=== PATIENT | male | born 1985 | race Caucasian/White ===

== ENCOUNTER → 2021-04-08 13:22 | Outpatient (REF) | payer OTHER, SELFPAY ==
--- NOTE | 2021-04-08 13:26 | ECG_ITS ---
Hook-up date: 2021-04-08 13:37:00 Duration: 42:48:00 Test Indications: PALPITATIONS Medications: [id number] QRS complexes 74 Ventricular ectopics which represent <1 % of total QRS comp. 3 Supraventricular ectopics which represent <1 % of total QRS comp. * Paced QRS complexs which represent % of total QRS comp. VENTRICULAR ECTOPY 74 Isolated 3 Bigeminal Cycles 0 Couplets 0 Runs 0 Beats in Runs * Beats LONGEST at * BPM at :: -- * Beats FASTEST at * BPM at :: -- SUPRAVENTRICULAR ECTOPY 3 Isolated 0 Couplets 0 Runs 0 Beats in Runs * Beats LONGEST at * BPM at :: -- * Beats FASTEST at * BPM at :: -- HEART RATES 51 MIN at 06:41:57 2021-04-09 103 AVG 172 MAX at 22:06:59 2021-04-08 LONGEST RR 1.1840 secs at 06:41:52 2021-04-09 S-T LEVELS Channel 1 - 128 mm at 13:37:00 2021-04-08 - 128 mm at 13:37:00 2021-04-08 Channel 2 - 128 mm at 13:37:00 2021-04-08 - 128 mm at 13:37:00 2021-04-08 Channel 3 - 128 mm at 03:25:61 -- - 128 mm at 03:25:61 Underlying rhythm is sinus; Average ventricular rate 103/min; range 51-172/min; About 62% of the time, rate>100/min; Rare ventricular ectopy; Patient diary reported 'heart rate change','cough', but no relevant findings on holter. Referred By: Jewell Maravilla Overread By: KATHERINE MCCRARY
== END ==
LOC: HO.CARD 13:22
PROVIDERS: PCP Family Medicine; Visit Provider Nurse Practitioner Primary Care
DX: R00.2 Palpitations (principal)
CPT/HCPCS: 93226

== ENCOUNTER 2025-03-02 08:45 | Outpatient (REF) | payer SELFPAY ==
--- OUTSIDE RECORDS SUMMARY | 2025-03-02 09:24 | XMS_ITS | Encounter Summary ---
Author Organization [employer] Address [address] [facility] 7t [place] [address] Care Team Providers Care Hay Baler Name Role Phone Rebecca Mckinney MD Primary Care Provider [phone] Encounter Details Date Type Department Care Team (Latest Contact Info) Description 02/18/2021 Abstract [facility] CONVERSIONS Dental, Provider, DDS Social History Tobacco Use Types Packs/Day Years Used Date Smoking Tobacco: Never Assessed Sex and Gender Information Value Date Recorded Sex Assigned at Male 04/06/2022 10:34 AM EDT Legal Sex Male 10:34 AM EDT Gender Identity Male 04/06/2022 10:34 AM EDT Sexual Orientation Straight 04/06/2022 10 :34 AM EDT documented as of this encounter Plan of Treatment Not on file documented as of this encounter Visit Diagnoses Not on filedocumented in this encounter Care Teams Hay Baler Relationship Specialty Start Date End Date Rebecca Mckinney MD [address] [place] [id number] PCP - General Family Medicine 01/02/19 documented as of this encounter
--- OUTSIDE RECORDS SUMMARY | 2025-03-02 09:24 | XMS_ITS | Encounter Summary ---
Author Organization [employer] Address [address] [facility] 7[address] [place] [address] Care Team Providers Care Graphotype Operator Name Role Phone Rebecca Mckinney MD Primary Care Provider [phone] Reason for Visit * Reason Onset Date Comments Med Refill 03/29/2024 Encounter Details Date Type Department Care Team (Late st Contact Info) Description 03/29/2024 Refill [facility] [address] [place] [address] Rebecca Mckinney MD [address] [place] [address] Type 2 diabetes mellitus with hyperglycemia, unspecified whether superintendent terminal insulin use ([facility]) Social History Tobacco Use Types Packs/Day Years Used Date Smoking Tobacco: Never Smokeless Tobacco: Never Depression Answer Date Recorded Patient Health Questionnaire-9 Score 11 02/22/2024 Patient Health Questionnaire-9 Score 11 02/22/2024 Last PHQ-9: Questionnaire Data Not on file 0 02/22/2024 Housing Stability Answer Date Recorded What is your housing situation today? I have trisha terry 02/22/[address] you li ve. Do you have problems with any of the following? None of the above 02/22/2024 Food Insecurity Answer Date Recorded Within the past 12 months, y ou worried that your food would run out before you got money to buy more: Never True 02/22/2024 Within the past 12 months,th e food you bought just didn't last and you didn't have enough money to get more: Never True Transportation Answer Date Recorded In the past 12 months, has l ack of transportation kept you from medical appts, meetings, work or from getting things needed for daily living? No 02/22/2024 Utilities Answer Date Recorded In the past 12 months, has t he electric, gas, oil or water company threatened to shut off services in your home? No 02/22/2024 Depression Answer Date Recorded Patient Health Questionnaire-2 Score 3 02/22/2024 Internet Access Answer Date Recorded Internet Access Q1 Yes 02/22/2024 Internet Access Q2 Not on file 02/22/2024 Sex and Gender Information Value Date Recorded Sex Assigned at Male 04/06/2022 10:34 AM EDT Legal Sex Male 10:34 AM EDT Gender Identity Male 04/06/2022 10:34 AM EDT Sexual Orientation Straight 04/06/2022 10 :34 AM EDT documented as of this encounter Plan of Treatment Not on file documented as of this encounter Visit Diagnoses Diagnosis Type 2 diabetes mellitus with hyperglycemia, unspecified whether superintendent terminal insulin use ([facility]) documented in this encounter Additional Health Concerns Assessment Noted Time PHQ-9 Depression Total Score: 11 024 9:16 AM EDT documented as of this encounter Care Teams Graphotype Operator Relationship Specialty Start Date End Date Rebecca Mckinney MD [address] [place] [address] PCP - General Family Medicine 01/02/19 documented as of this encounter
--- OUTSIDE RECORDS SUMMARY | 2025-03-02 09:24 | XMS_ITS | Clinical Summary ---
Author Organization [employer] Address [address] [facility] 7[address] [place] [address] Care Team Providers Care Hydrodynamics Professor Name Role Phone Rebecca Mckinney MD Primary Care Provider Allergies No known active allergies Medications * This document contains information received from the source organization and may not represent a complete record from that organization. FREESTYLE LITE test strip TEST BLOOD SUGAR THREE TIMES DAILY IN THE MORNING AND NEEDED 250 strip 3 3 Active Continuous Glucose Mechanical Reliability Engineer (FreeStyle Santos 2 [place]) device Scan sensor every 8 hours 1 each 4 Active Continuous Glucose Sensor (FreeStyle Santos 2 Sensor) [facility] [place] 1 sensor every 14 days 2 each 11 4 Active Melatonin 5 MG capsule Take 1 or 2 capsules by mouth 2-3 hours prior to your desired bedtime 60 capsule 3 4 Active atorvastatin (Lipitor) 20 MG tabletIndicatio ns:Type 2 diabetes mellitus with hyperglycemia, unspecified 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 renewal 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 insulin use (CMS/HCC) TAKE 1 TABLET BY MOUTH EVERY DAY 90 tablet 3 5 Active lisinopril-hydr oCHLOROthiazide 20-25 MG tabletIndicatio ns:Type 2 diabetes mellitus with hyperglycemia, unspecified 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 renewal inspector insulin use (CMS/HCC) TAKE 1 TABLET BY MOUTH EVERY DAY 90 tablet 3 5 Active glipiZIDE (Glucotrol) 10 MG tabletIndicatio ns:Type 2 diabetes mellitus with hyperglycemia, unspecified whether penitentiary insulin use (CMS/HCC) TAKE 1 TABLET BY MOUTH TWICE DAILY BEFORE MEALS 180 tablet 3 5 Active metFORMIN XR (Glucophage-XR) 500 MG 24 hr tabletIndicatio ns:Type 2 diabetes mellitus with hyperglycemia, unspecified whether penitentiary insulin use ([facility]) TAKE 2 TABLETS BY MOUTH TWICE DAILY 120 tablet 3 5 Active Tirzepatide (Mounjaro) 2.5 MG/0.5ML solution auto-injector Inject 2.5 mg under the skin 1 (one) time per week. 2 mL 11 5 Active cyclobenzaprine (Flexeril) 10 MG tablet Take 0.5 tablets (5 mg) by mouth at bedtime. 90 tablet 1 5 Active glucose blood (FreeStyle Precision Bill Test) test stripIndication s:Type 2 diabetes mellitus with hyperglycemia, with long-term current use of insulin ([facility]) Use to test blood sugar 3 times daily and as needed 100 each 12 4 02/22/20 25 Dulaglutide 1.5 MG/0.5ML solution auto-injector Inject 0.5 mL (1.5 mg) under the skin 1 (one) time per week. 2 mL 11 4 02/09/20 25 Discontinue d(Alternate therapy) Active Problems Problem Noted Date Diagnosed Date Upper back pain 02/08/2025 Assessment & Plan (02/08/2025 1:05 PM EDT): - discussed about ergonomics / occupational injury prevention - Rx cyclobenzaprine Insomnia 05/17/2024 Assessment & Plan (05/17/2024 12:47 PM EST): - multifactorial - trial of melatonin - continue improving sleep hygiene - consider sleep study Shoulder pain 05/17/2024 Assessment & Plan (05/17/2024 12:46 PM EST): - equivocal impingement sign - evaluate with X-ray - continue judicious use of APAP and NSAID - refer to PT - consider MRI and referral to ortho if no improvement Marital conflict 05/17/2024 Depression, unspecified 03/03/2024 Assessment & Plan (05/20/2024 6:20 AM EST): - most likely MDD / anxiety - PHQ9 score 11 and GAD7 score 4 in Feb 2024 - PHQ9 score 7 today, 05/17/24 - discussed about pharmacological and non-pharmacological treatment today - patient requested behavioral health service and referred to integrated behavioral health service. He was seen by integrated behavioral health service clinician today since it is difficult to get hold of him. - he had a marital problem last year (his having an affair, and he was trying to forgive and repress his anger) Assessment & Plan (03/03/2024 5:55 AM EDT): - most likely MDD / anxiety - PHQ9 score 11 and GAD7 score 4 today - discussed about pharmacological and non-pharmacological treatment today - patient requests behavioral health service - he had a marital problem last year (his having an affair, and he was trying to forgive and repress his anger) - he did not want to talk much today because he is with his children. Type 2 diabetes mellitus 06/23/2023 Assessment & Plan (02/08/2025 1:10 PM EDT): Dx: 2016 A1C: 11.7% on 02/08/2025, worsened from 7.3% on 05/17/24 Continue Metformin 1g bid Continue Glipizide 10mg bid, with plan to taper down as we titrate up GLP1RA. Change dulaglutide 1.5 mg to tirzepatide 2.5 mg weekly Treatment Hx: Lantus insulin 25 units previously, discontinued with initiation of GLP1RA and he was able to improve to A1C 7.3%. Continue SMBG/medications and work lifestyle modifications. 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 Advised to reschedule appointment Last microalbumin-08/08/20 UACR 24; improved from 140 in 2020 Last lipid profile- 08/08/20 TC 179; TG 346; HDL 41; LDL 92 Last comprehensive foot exam -02/08/2025, patient has neuropathy. Decreased sensation left side worse than the right Hep B series started on 01/11/19 Assessment & Plan (05/17/2024 12:40 PM EST): Dx: 2015 A1C: 7.3% on 05/17/24, improved from 9.2% on 02/22/24 Continue Metformin 1g bid Continue Glipizide 10mg bid, with plan to taper down as we titrate up GLP1RA. Increase dulaglutide (Trulicity) to 1.5 mg weekly Treatment Hx: Lantus insulin 25 units previously, discontinued with initiation of GLP1RA Continue SMBG/medications and work lifestyle modifications. 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 Upcoming appt Last microalbumin-08/08/20 UACR 24; improved from 140 in 2019 Last lipid profile- 08/08/20 TC 179; TG 346; HDL 41; LDL 92 Last comprehensive foot exam - 02/22/24, patient has neuropathy. Hep B series started on 01/11/19 Assessment & Plan (03/03/2024 5:46 AM EDT): Dx: 2015 A1C: 9.2% on 02/22/24 Continue Lantus 20 units at bedtime (patient states he has been administering 25 units, will decrease when patient starts dulaglutide). Continue Metformin 1g bid Continue Glipizide 10mg bid, with plan to taper down as he starts dulaglutide. SMBG/medications and work lifestyle modifications. 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 Will request another eye exam. Last microalbumin-08/08/20 UACR 24; improved from 140 in 2020 Last lipid profile- 08/08/20 TC 179; TG 346; HDL 41; LDL 92 Last comprehensive foot exam - 02/22/24, patient has neuropathy. Hep B series started on 01/11/19 Dermatophytosis 09/16/2018 Hyperlipidemia 05/05/2018 06/23/2023 Assessment & Plan (02/08/2025 4:52 AM EDT): - current medication: atorvastatin 10 mg at bedtime - last lipid profile: overdue - continue working on lifestyle modificaitons Assessment & Plan (05/17/2024 12:41 PM EST): - current medication: atorvastatin 10 mg at bedtime - last lipid profile: overdue - continue working on lifestyle modificaitons Assessment & Plan (03/03/2024 5:48 AM EDT): - current medication: atorvastatin 10 mg at bedtime - last lipid profile: overdue - continue working on lifestyle modificaitons Essential hypertension 04/11/2018 Assessment & Plan (02/08/2025 4:51 AM EDT): -Goal BP < 130/80 per ACC/AHA guideline (Treatment threshold >=130/80) -BP almost at goal (elevated DBP) -Continue working on lifestyle modifications -Recommended self-monitoring BP. -Continue current medications: lisinopril - hctz 20-25 mg daily Assessment & Plan (05/17/2024 12:37 PM EST): -Goal BP < 140/90 per JNC-8 and < 130/80 per ACC/AHA guideline (Treatment threshold >=130/80) -BP almost at goal (elevated DBP) -Continue working on lifestyle modifications -Recommended self-monitoring BP. -Continue current medications: lisinopril - hctz 20-25 mg daily Assessment & Plan (02/22/2024 9:41 AM EDT): -Goal BP < 140/90 per JNC-8 and < 130/80 per ACC/AHA guideline (Treatment threshold >=130/80) -BP not at goal today -Continue working on lifestyle modifications -Recommended self-monitoring BP. -Continue current medications: lisinopril - hctz 20-25 mg daily Irritant contact dermatitis 04/11/2018 Tachycardia 04/11/2018 Assessment & Plan (02/08/2025 12:57 PM EDT): - not tachycardiac today, but HR is usually > 90 - check TSH Assessment & Plan (03/03/2024 5:42 AM EDT): - in the walk-in clinic in a setting of COVID - if patient is symptomatic after COVID resolves, will consider Holter monitor Resolved Problems Problem Noted Date Diagnosed Date Resolved Date Oropharyngeal dysphagia 05/17/202405/07 Odynophagia 05/17/2024 02/08/2025 Assessment & Plan (05/17/2024 12:56 PM EST): - no history of smoking or excessive alcohol intake - ? Postnasal drip - only on left side - will refer to ENT for evaluation Dyspnea on exertion 02/18/2024 03/03/20 COVID-19 02/18/2024 05/16/2024 Assessment & Plan (03/03/2024 5:48 AM EDT): - Dx on 02/18/24. - Continue precautionary measure per CDC guideline - Recommended to get a new COVID vaccine in 2-3 months Assessment & Plan (02/18/2024 3:48 PM EDT): -COVID-19 positive, symptoms mild to moderate -no evidence of respiratory distress -pt meets criteria for Paxlovid therapy -supportive care with fluids, rest and OTC analgesics -isolation discussed -work/school note given -seek medical attention for worsening symptoms Encounters Date Type Department Care Team Description 02/23/[address] [address] Rebecca Mckinney MD 02/08/2025 9:00 AM EDT Office Visit [address] [address] Rebecca Mckinney MD Type 2 diabetes mellitus with hyperglycemia, with long-term current use of insulin ([facility]) (Primary Dx); Essential hypertension; Mixed hyperlipidemia; Tachycardia; Dietary counseling; Exercise counseling; Class 1 obesity due to excess calories with serious comorbidity and body mass index (BMI) of 33.0 to 33.9 in adult; Depression, unspecified depression type; Upper back pain 02/08/2025 Telephone [facility] [address] [place] [phone] Rebecca Mckinney MD 02/08/2025 Travel 02/07/[address] [address] Rebecca Mckinney MD Insurance 01/03/[address] [address] Rebecca Mckinney MD OUTREACH 12/28/2024 Refill [facility] [address] [place] [address] Rebecca Mckinney MD Type 2 diabetes mellitus with hyperglycemia, unspecified 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 renewal inspector insulin use ([facility]) from Last 3 Months Immunizations Immunization Administration Dates Next Due Hep B, adult 01/11/2019 Influenza injectable quadrivalent preservative f ree 04/01/2021 Pneumococcal Polysaccharide PPSV23 01/11/2019 Tdap 01/11/2019 Family History Medical History Relation Name Comments Diabetes Father Diabetes Mother Hypertension Mother Relation Name Status Comments Father Mother Social History Tobacco Use Types Packs/Day Years Used Date Smoking Tobacco: Never Smokeless Tobacco: Never Tobacco Cessation:Counseling Given: Not Answered Depression Answer Date Recorded Patient Health Questionnaire-9 Score 7 05/17/2024 Patient Health Questionnaire-9 Score 7 05/17/2024 Last PHQ-9: Questionnaire Data Not on file 1 07/18/2023 Housing Stability Answer Date Recorded What is [...] Answer Date Recorded Patient Health Questionnaire-2 Score 4 05/17/2024 Internet Access Answer Date Recorded Internet Access Q1 Yes 02/22/2024 Internet Access Q2 Not on file 02/22/2024 Sex and Gender Information Value Date Recorded Sex Assigned at Male 04/06/2022 10:34 AM EDT Legal Sex Male 10:34 AM EDT Gender Identity Male 04/06/2022 10:34 AM EDT Sexual Orientation Straight 04/06/2022 10 :34 AM EDT Last Filed Vital Signs Vital Sign Reading Time Taken Comments Blood Pressure 124/80 02/08/2025 9:27 AM EDT Pulse 90 02/08/2025 9:27 AM EDT Temperature 36 C (96.8 F) 02/08/2025 9:27 AM EDT Respiratory Rate 17 02/08/2025 9:27 AM EDT Oxygen Saturation 99% 02/08/2025 9:27 AM EDT Inhaled Oxygen Concentration - - Weight 100 kg (221 lb 3.2 oz) 02/08/2025 9:27 AM EDT Height 172.9 cm (5' 8.06 ) 02/08/2025 9:27 AM ED T Body Mass Index 33.57 02/08/2025 9:27 AM EDT Plan of Treatment Health Maintenance Due Date Last Done Comments HIV Screening 1984 Family Planning (PISQ) 10/28/1999 HPV Vaccines (1 - Male 3-dose series) 10/28/1999 Hepatitis C Screening 2002 Hepatitis B Vaccines (2 of 3 - 19+ 3-dose series) 02/08/2019 01/11/2019 Pneumococcal Vaccine: Pediatrics (0 to 5 Years) and At-Risk Patients (6 to 49) Years (2 of 2 - PCV) 01/12/2020 01/11/2019 Diabetes: Urine Protein Screening 08/08/2021 08/08/2020, 03/06/2020 Lipid Panel 08/08/2021 08/08/2020 Eye Exam 10/31/2023 10/30/2022, 10/06, 10/30/2022, Additional history exists COVID-19 Vaccine ( season) 2025 05/15/2021, 09/20/2020, 08/23/2020 Influenza Vaccine (#1) 2025 04/01/2021 Diabetes: Hemoglobin A1C 05/10/2025 025, 05/17/2024, 02/22/2024, Additional history exists Alcohol/Substance Use Screening 05/17/2025 05/17/2024 Depression Screening 05/17/2025 05/17/2024, 05/17/20 24 Diabetes: Foot Exam 02/08/2026 02/08/2025, 02/08/2025, 02/08/2025, Additional history exists Disability Screening 02/08/2026 02/08/2025 SDOH Screening 02/08/2026 02/08/2025 Tobacco Screening 02/08/2026 02/08/2025 DTaP/Tdap/Td Vaccines (2 - Td or Tdap) 01/11/2029 01/11/2019 Zoster Vaccines (1 of 2) 2034 RSV Patients and Patients Aged 60 years or older (1 - 1-dose 75+ series) 10/28/2059 HIB Vaccines Aged Out No longer eligi ble based on patient's age to complete this topic Hepatitis A Vaccines Aged Out No long er eligible based on patient's age to complete this topic IPV Vaccines Aged Out No longer eligi ble based on patient's age to complete this topic Meningococcal B Vaccine Aged Out No l onger eligible based on patient's age to complete this topic Meningococcal Vaccine Aged Out No long polo eligible based on patient's age to complete this topic RSV under 20 months Aged Out No longe r eligible based on patient's age to complete this topic Rotavirus Vaccines Aged Out No longer eligible based on patient's age to complete this topic Procedures Procedure Name Priority Date/Time Associated Diagnosis Comments POCT GLYCOSYLATED HEMOGLOBIN (HGB A1C) Routine 02/08/2025 9:40 AM EDT Type 2 diabetes mellitus with hyperglycemia, with long-term current use of insulin ([facility]) POCT GLUCOSE Routine 02/08/2025 9:28 AM EDT Type 2 diabetes mellitus with hyperglycemia, with long-term current use of insulin ([facility]) ALBUMIN, RANDOM URINE W/CREATININE Routine 08/08/2020 10:45 AM EST LIPID PANEL, STANDARD Routine 08/08/2020 10:45 AM EST from Last 3 Months or Most Recently Relevant to Health Maintenance Results * (ABNORMAL) POCT glycosylated hemoglobin (Hgb A1c) (02/08/2025 9:40 AM EDT) [facility] Hemoglobin A1C 11.7(A) 4.0 - 5.7 % QC Media Lot # [id number] Lot# Expiration Date Blood Capillary blood specimen / Unknown 02/08/2025 9:40 AM EDT us Rebecca Mckinney MD POINT OF CARE TEST ENTER/EDIT OR DERABLES Final Result * (ABNORMAL) POCT glucose manually resulted (02/08/2025 9:28 AM EDT) [facility] Glucose Blood, POC 269(A) 60 - 200 mg/dL QC Media Lot # [id number] Lot# Expiration Date Blood Capillary blood specimen / Unknown 02/08/2025 9:28 AM EDT us Rebecca Mckinney MD POINT OF CARE TEST ENTER/EDIT OR DERABLES Final Result * ALBUMIN, RANDOM URINE W/CREATININE (08/08/2020 10:45 AM EST) [facility] Microalbumin Urine 2.4 See Note: mg/dL [facility] Comment: Reference Range: Reference Range Not established Microalb/Creat Ratio 24 <30 mcg/mg creat [facility] Comment: The ADA defines abnormalities in albumin excretion as follows: Category Result (mcg/mg creatinine) Normal <30 Microalbuminuria 30-299 Clinical albuminuria > OR = 300 The ADA recommends that at least two of three specimens collected within a 3-6 month period be abnormal before considering a patient to be within a diagnostic category. Creatinine, Urine 99 20 - 320 mg/dL [facility] 08/08/2020 10:4 5 AM EST us Rebecca Mckinney MD LAB URINE ORDERABLES Final Resul t [facility] [address] * (ABNORMAL) LIPID PANEL, STANDARD (08/08/2020 10:45 AM EST) [facility] Chol/HDLC Ratio 4.4 <5.0 (calc) [facility] Cholesterol, Total 179 <200 mg/dL [facility] HDL Cholesterol 41 > OR = 40 mg/dL [facility] LDL Cholesterol 92 mg/dL (calc) [facility] Comment: Reference range: <100 Desirable range <100 mg/dL for primary prevention; <70 mg/dL for patients with CHD or diabetic patients with > or = 2 CHD risk factors. LDL-C is now calculated using the Marcellus calculation, which is a validated novel method providing better accuracy than the Friedewald equation in the estimation of LDL-C. Gary SS et al. HÉCTOR. 2013;310(19): 9944-2516 (http://education.Konjekt/faq/KAO440) Non-HDL Cholesterol 138(H) <130 mg/dL (calc) [facility] Comment: For patients with diabetes plus 1 major ASCVD risk factor, treating to a non-HDL-C goal of <100 mg/dL (LDL-C of <70 mg/dL) is considered a therapeutic option. Triglycerides 346(H) <150 mg/dL [facility] Comment: If a non-fasting specimen was collected, consider repeat triglyceride testing on a fasting specimen if clinically indicated. Aguirre et al. J. of Clin. Lipidol. 2015;9:129-169. 08/08/2020 10:4 5 AM EST us Rebecca Mckinney MD LAB BLOOD ORDERABLES Final Resul t [facility] [address] from Last 3 Months or Most Recently Relevant to Health Maintenance Insurance [employer] PPO Care Teams Hydrodynamics Professor Relationship Specialty Start Date End Date Rebecca Mckinney MD [address] [place] [address] [place] [address] PCP - General Family Medicine 01/02/19
--- OUTSIDE RECORDS SUMMARY | 2025-03-02 09:24 | XMS_ITS | Encounter Summary ---
Author Organization [employer] Address 75 [facility] 7t [place] [address] Care Team Providers Care Dope Weigh Operator Name Role Phone Rebecca Mckinney MD Primary Care Provider [phone] Reason for Referral * Consultation (Routine) - Closed Specialty Diagnoses / Procedures Referred By Contac t Referred To Contact Pharmacy Diagnoses Type 2 diabetes mellitus with hyperglycemia, with long-term current use of insulin (CMS/HCC) Essential hypertension Rebecca Mckinney MD [address] [place] [address] Phone: tel: fax: Referral ID Status Reason Start Date Expiration Date V isits Requested Visits Authorized [id number] Closed Consult and Treat 04/05/2024 04/05/2025 6 6 Encounter Details Date Type Department Care Team (Late st Contact Info) Description 04/05/2024 Orders Only [facility] [address] [place] [address] Rebecca Mckinney MD [address] [place] [address] Type 2 diabetes mellitus with hyperglycemia, with long-term current use of insulin (CMS/HCC) (Primary Dx); Essential hypertension Social History Tobacco Use Types Packs/Day Years [...] as of this encounter Plan of Treatment Scheduled Referrals Name Type Priority Associated Diagnoses Orde r Schedule Referral to Pharmacy CD Outpatient Referral Routine Type 2 diabetes mellitus with hyperglycemia, with long-term current use of insulin ([facility]) Essential hypertension Ordered: 04/05/2024 documented as of this encounter Visit Diagnoses Diagnosis Type 2 diabetes mellitus with hyperglycemia, with long-term current use of insulin ([facility])- Primary Essential hypertension Unspecified essential hypertension documented in this encounter Additional Health Concerns Assessment Noted Time PHQ-9 Depression Total Score: 11 024 9:16 AM EDT documented as of this encounter Care Teams Dope Weigh Operator Relationship Specialty Start Date End Date Rebecca Mckinney MD [address] [place] [address] PCP - General Family Medicine 01/02/19 documented as of this encounter
--- OUTSIDE RECORDS SUMMARY | 2025-03-02 09:24 | XMS_ITS | Encounter Summary ---
Author Organization [employer] Address 75 [facility] 7t [place] [address] Care Team Providers Care Returns Supervisor Name Role Phone Rebecca Mckinney MD Primary Care Provider [phone] Reason for Visit * Reason Onset Date Comments Med Refill 03/07/2024 Encounter Details Date Type Department Care Team (Late st Contact Info) Description 03/07/2024 Refill [facility] [address] [place], [place] [phone] Rebecca Mckinney MD [address] [place] [address] Type 2 diabetes mellitus with hyperglycemia, unspecified 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 treater insulin use ([facility]) Social History Tobacco Use Types Packs/Day Years [...] diabetes mellitus with hyperglycemia, unspecified 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 treater insulin use ([facility]) documented in this encounter Additional Health Concerns Assessment Noted Time PHQ-9 Depression Total Score: 11 024 9:16 AM EDT documented as of this encounter Care Teams Returns Supervisor Relationship Specialty Start Date End Date Rebecca Mckinney MD [address] [place] [address] PCP - General Family Medicine 01/02/19 documented as of this encounter
--- OUTSIDE RECORDS SUMMARY | 2025-03-02 09:24 | XMS_ITS | Encounter Summary ---
Author Organization [employer] Address 75 [facility] 7t [place] [address] Care Team Providers Care Registered Nurse First Assistant Name Role Phone Rebecca Mckinney MD Primary Care Provider [phone] Encounter Details Date Type Department Care Team (Late st Contact Info) Description 12/11/2022 Orders Only [facility] & PEDS [address] [place] [address] Liss Bautista LPN Social History Tobacco Use Types Packs/Day Years Used Date Smoking Tobacco: Never Smokeless Tobacco: Never Sex and Gender Information Value Date Recorded Sex Assigned at Male 04/06/2022 10:34 AM EDT Legal Sex Male 10:34 AM EDT Gender Identity Male 04/06/2022 10:34 AM EDT Sexual Orientation Straight 04/06/2022 10 :34 AM EDT documented as of this encounter Plan of Treatment Not on file documented as of this encounter Visit Diagnoses Not on filedocumented in this encounter Care Teams Registered Nurse First Assistant Relationship Specialty Start Date End Date Rebecca Mckinney MD [address] [place] [address] PCP - General Family Medicine 01/02/19 documented as of this encounter
--- OUTSIDE RECORDS SUMMARY | 2025-03-02 09:24 | XMS_ITS | Encounter Summary ---
Author Organization [employer] Address 75 [facility] 7t [place] [address] Care Team Providers Care Mortuary Operations Manager Name Role Phone Rebecca Mckinnye MD Primary Care Provider [phone] Reason for Visit * Reason Onset Date Comments Med Refill 06/04/2024 Encounter Details Date Type Department Care Team (Late st Contact Info) Description 06/04/2024 Refill [facility] MEDICINE [address] [place] [address] Rebecca Mckinney MD [address] [place] [address] Social History Tobacco Use Types Packs/Day Years [...] Diagnoses Not on filedocumented in this encounter Additional Health Concerns Assessment Noted Time PHQ-9 Depression Total Score: 7 05/17/20 24 2:31 PM EST documented as of this encounter Care Teams Mortuary Operations Manager Relationship Specialty Start Date End Date Rebecca Mckinney MD [address] [place] [address] PCP - General Family Medicine 01/02/19 documented as of this encounter
[2025-03-02 12:20] LABS: Alanine Aminotransferase 26 U/L (0-40); Albumin Level 4.4 g/dL (3.5-5.0); Alkaline Phosphatase 79 U/L (39-117); Anion Gap 9 (12-20); Aspartate Amino Transferase 41 U/L (5-37); Blood Urea Nitrogen 21 mg/dL (9-16); Calcium 9.5 mg/dL (8.4-10.2); Carbon Dioxide 29 mmol/L (22-29); Chloride 107 mmol/L (96-108); Cholesterol 153 mg/dL (<200); Estimated Glomerular Filt Rate > 60; HDL Cholesterol 28 mg/dL (>40); Potassium 4.2 mmol/L (3.3-5.1); Sodium 141 mmol/L (135-145); Total Protein 6.9 g/dL (6.5-8.0); Triglycerides 449 mg/dL (<150)
[2025-03-02 12:34] LABS: Folate 9.0 ng/mL (> or = 4.0); Vitamin B12 507 pg/mL (200-900)
[2025-03-02 13:38] LABS: Reflex LDLD? Yes
== END 2025-03-02 08:46 | disposition home or self-care (01) ==
LOC: HO.HHCL 08:45
PROVIDERS: PCP Family Medicine; Visit Provider Family Medicine
DX: E11.65 Type 2 diabetes mellitus with hyperglycemia (principal); R00.0 Tachycardia, unspecified; Z79.4 Long term (current) use of insulin
CPT/HCPCS: 36415; 80053; 80061; 82607; 82746; 83721; 84443

== ENCOUNTER 2025-04-17 14:44 | Outpatient (REF) | payer OTHER, SELFPAY ==
--- OUTSIDE RECORDS SUMMARY | 2025-04-16 17:40 | XMS_ITS | Encounter Summary ---
Author Organization [employer] Address 75 [facility] 7t [place] [address] Care Team Providers Care Fixed Route Operator Name Role Phone Rebecca Mckinney MD Primary Care Provider [phone] Reason for Visit * Reason Comments Shoulder Pain Encounter Details Date Type Department Care Team ([facility] st Contact Info) Description 04/16/2025 5:40 PM EST Office Visit [facility] [address] [place] [address] Jo Murillo FNP [address] [place] [address] Chronic left shoulder pain (Primary Dx) Social History Tobacco Use Types Packs/Day Years [...] AM EDT documented as of this encounter Last Filed Vital Signs Vital Sign Reading Time Taken Comments Blood Pressure 131/88 04/16/2025 5:23 PM EST Pulse 102 04/16/2025 5:23 PM EST Temperature 36.4 C (97.6 F) 04/16/2025 5:23 PM EST Respiratory Rate 16 04/16/2025 5:23 PM EST Oxygen Saturation - - Inhaled Oxygen Concentration - - Weight 101 kg (222 lb) 04/16/2025 5:23 PM EST Height 172.9 cm (5' 8.06 ) 04/16/2025 5:23 PM ES T Body Mass Index 33.7 04/16/2025 5:23 PM EST documented in this encounter Plan of Treatment Scheduled Orders Name Type Priority Associated Diagnoses Orde r Schedule XR Shoulder 2+ Views Left Imaging Routine Chronic left shoulder pain Expected: 04/16/2025, Expires: 04/16/2026 documented as of this encounter Visit Diagnoses Diagnosis Chronic left shoulder pain- Primary Pain in joint, shoulder region documented in this encounter Additional Health Concerns Assessment Noted Time PHQ-9 Depression Total Score: 7 05/17/20 24 2:31 PM EST documented as of this encounter Care Teams Fixed Route Operator Relationship Specialty Start Date End Date Rebecca Mckinney MD [address] [place] [address] PCP - General Family Medicine 01/02/19 documented as of this encounter
--- OUTSIDE RECORDS SUMMARY | 2025-04-17 16:31 | XMS_ITS | Encounter Summary ---
Author Organization [employer] Address 75 [facility] 7t [place] [address] Care Team Providers Care Casualty Claims Supervisor Name Role Phone Rebecca Mckinney MD Primary Care Provider [phone] Encounter Details Date Type Department Care Team (Late st Contact Info) Description 12/11/2022 Orders Only [facility] & PEDS [address] [place] [address] Liss Bautista LPN Social History Tobacco Use [...] on filedocumented in this encounter Care Teams Casualty Claims Supervisor Relationship Specialty Start Date End Date Rebecca Mckinney MD [address] [place] [address] PCP - General Family Medicine 01/02/19 documented as of this encounter
--- OUTSIDE RECORDS SUMMARY | 2025-04-17 16:31 | XMS_ITS | Encounter Summary ---
Author Organization [employer] Address 75 [facility] 7t [place] [address] Care Team Providers Care Pbx Technician Name Role Phone Rebecca Mckinney MD Primary Care Provider [phone] Reason for Visit * Reason Onset Date Comments Med Refill 06/04/2024 Encounter Details Date Type Department Care Team (Late st Contact Info) Description 06/04/2024 Refill [facility] MEDICINE [address] [place] [address] Rebecca Mckinney MD [address] [place] [address] Social History Tobacco Use Types Packs/Day Years [...] documented as of this encounter Care Teams Pbx Technician Relationship Specialty Start Date End Date Rebecca Mckinney MD [address] [place] [address] PCP - General Family Medicine 01/02/19 documented as of this encounter
--- OUTSIDE RECORDS SUMMARY | 2025-04-17 16:31 | XMS_ITS | Encounter Summary ---
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 insulin use ([facility]) Social History Tobacco Use Types Packs/Day Years [...] 2 diabetes mellitus with hyperglycemia, unspecified whether skilled nursing insulin use (HCC) documented in this encounter Additional Health Concerns Assessment Noted Time PHQ-9 Depression Total Score: 11 024 9:16 AM EDT documented as of this encounter Care Teams Dividend Deposit Voucher Clerk Relationship Specialty Start Date End Date Rebecca Mckinney MD [address] [place] [address] PCP - General Family Medicine 01/02/19 documented as of this encounter
--- OUTSIDE RECORDS SUMMARY | 2025-04-17 16:31 | XMS_ITS | Clinical Summary ---
Author Organization [employer] Address 75 [facility] 7t [place] [address] Care Team Providers Care [employer] Web[employer] Consultant Name Role Phone Rebecca Mckinney MD Primary Care Provider [phone] Allergies No known active allergies Medications * This document contains information received from the source organization and may not represent a complete record from that organization. FREESTYLE LITE test strip TEST BLOOD SUGAR THREE TIMES DAILY IN THE MORNING AND NEEDED 250 strip 3 3 Active Continuous Glucose Wind Operations Manager (FreeStyle Santos 2 [place]) device Scan sensor every 8 hours 1 each 4 Active Continuous Glucose Sensor (FreeStyle Santos 2 Sensor) [facility] Apply 1 sensor every 14 days 2 each 11 4 Active Melatonin 5 MG capsule Take 1 or 2 capsules by mouth 2-3 hours prior to your desired bedtime 60 capsule 3 4 Active atorvastatin (Lipitor) 20 MG tabletIndication s:Type 2 diabetes mellitus with hyperglycemia, unspecified whether director long term care insulin use (HCC) TAKE 1 TABLET BY MOUTH EVERY DAY 90 tablet 3 5 Active lisinopril-hydro CHLOROthiazide 20-25 MG tabletIndication s:Type 2 diabetes mellitus with hyperglycemia, unspecified whether director long term care insulin use (HCC) TAKE 1 TABLET BY MOUTH EVERY DAY 90 tablet 3 5 Active glipiZIDE (Glucotrol) 10 MG tabletIndication s:Type 2 diabetes mellitus with hyperglycemia, unspecified whether senior care insulin use (HCC) TAKE 1 TABLET BY MOUTH TWICE DAILY BEFORE MEALS 180 tablet 3 5 Active metFORMIN XR (Glucophage-XR) 500 MG 24 hr tabletIndication s:Type 2 diabetes mellitus with hyperglycemia, unspecified whether senior care insulin use (HCC) TAKE 2 TABLETS BY MOUTH TWICE DAILY 120 tablet 3 5 Active Tirzepatide (Mounjaro) 2.5 MG/0.5ML solution auto-injector Inject 2.5 mg under the skin 1 (one) time per week. 2 mL 11 5 Active cyclobenzaprine (Flexeril) 10 MG tablet Take 0.5 tablets (5 mg) by mouth at bedtime. 90 tablet 1 5 Active naproxen (Naprosyn) 500 MG tabletIndication s:Chronic left shoulder pain Take 1 tablet twice daily with food for 5 days 15 tablet 5 Active Active Problems Problem Noted Date Diagnosed Date [...] & Plan (02/08/2025 1:10 PM EDT): Dx: 2015 A1C: 11.7% on 02/08/2025, worsened from 7.3% [...] & Plan (03/03/2024 5:46 AM EDT): Dx: 2016 A1C: 9.2% on 02/22/24 Continue Lantus 20 [...] for evaluation Dyspnea on exertion 02/18/2024 03/03/20 24 COVID-19 02/18/2024 05/16/2024 Assessment & Plan (03/03/2024 [...] Encounters Date Type Department Care Team Description 04/16/2025 5:40 PM EST Office Visit [facility] [address] [place] [phone] Jo Murillo FNP Chronic left shoulder pain (Primary Dx) 04/16/2025 Travel 02/23/[address] [address] Rebecca Mckinney MD 02/08/2025 9:00 AM EDT Office Visit [address] [address] Rebecca Mckinney MD Type 2 diabetes mellitus with hyperglycemia, with long-term current use of insulin ([facility]) (Primary Dx); Essential hypertension; Mixed hyperlipidemia; Tachycardia; Dietary counseling; Exercise counseling; Class 1 obesity due to excess calories with serious comorbidity and body mass index (BMI) of 33.0 to 33.9 in adult; Depression, unspecified depression type; Upper back pain 02/08/2025 Telephone [facility] [address] [place] [phone] Rebecca Mckinney MD 02/08/2025 Travel 02/07/[address] [phone] Rebecca Mckinney MD Insurance from Last 3 Months Immunizations Immunization Administration [...] 16 04/16/2025 5:23 PM EST Oxygen Saturation 99% 02/08/2025 9:27 AM EDT Inhaled Oxygen Concentration - - Weight 101 kg (222 lb) 04/16/2025 5:23 PM EST Height 172.9 cm (5' 8.06 ) 04/16/2025 5:23 PM ES T Body Mass Index 33.7 04/16/2025 5:23 PM EST Plan of Treatment Health Maintenance Due Date [...] Diabetes: Urine Protein Screening 08/08/2021 08/08/2020, 03/06/2020 Eye Exam 10/31/2023 10/30/2022, 10/06, 10/30/2022, Additional history exists COVID-19 Vaccine (2024- season) 2025 05/15/2021, 09/20/2020, 08/23/2020 Influenza Vaccine (#1) 2025 04/01/2021 Diabetes: Hemoglobin A1C 05/10/2025 025, 05/17/2024, 02/22/2024, Additional history exists Alcohol/Substance Use Screening 05/17/2025 05/17/2024 Depression Screening 05/17/2025 05/17/2024, 05/17/20 24 Diabetes: Foot Exam 02/08/2026 02/08/2025, 02/08/2025, 02/08/2025, Additional history exists Disability Screening 02/08/2026 02/08/2025 SDOH Screening 02/08/2026 02/08/2025 Lipid Panel 03/02/2026 03/02/2025, 02/06, 08/08/2020 Tobacco Screening 04/16/2026 04/16/2025 DTaP/Tdap/Td Vaccines (2 - Td or Tdap) [...] Procedure Name Priority Date/Time Associated Diagnosis Comments DIRECT LDL Routine 03/02/2025 1:38 PM EDT Type 2 diabetes mellitus with hyperglycemia, with long-term current use of insulin (CMS/HCC) VITAMIN B12/FOLATE, SERUM PANEL Routine 03/02/2025 8:56 AM EDT Type 2 diabetes mellitus with hyperglycemia, with long-term current use of insulin (CMS/HCC) COMPREHENSIVE METABOLIC PANEL Routine 03/02/2025 8:56 AM EDT Type 2 diabetes mellitus with hyperglycemia, with long-term current use of insulin (CMS/HCC) LIPID PANEL WITH REFLEX TO DIRECT LDL Routine 03/02/2025 8:56 AM EDT Type 2 diabetes mellitus with hyperglycemia, with long-term current use of insulin (CMS/HCC) TSH W/REFLEX TO FT4 Routine 03/02/2025 8 :56 AM EDT Tachycardia POCT GLYCOSYLATED HEMOGLOBIN (HGB A1C) Routine 02/08/2025 9:40 AM EDT Type 2 diabetes mellitus with hyperglycemia, with long-term current use of insulin (CMS/HCC) POCT GLUCOSE Routine 02/08/2025 9:28 AM EDT Type 2 diabetes mellitus with hyperglycemia, with long-term current use of insulin (CMS/HCC) ALBUMIN, RANDOM URINE W/CREATININE Routine 08/08/2020 10:45 AM EST from Last 3 Months or Most Recently Relevant to Health Maintenance Results * Direct LDL (03/02/2025 1:38 PM EDT) LDL Direct 70 <100 mg/dL [facility] Comment:Greatly elevated Tri glycerides values (>1200 mg/dL)interfere with the dLDL assay.Desirable range <100 mg/dL for primary prevention;<70 mg/dL for patients with CHD or diabetic patientswith > or = 2 CHD risk factors.THIS TEST WAS PERFORMED AT:[employer] [place] [phone] ANG MD 03/02/2025 1:38 PM EDT 03/02/2025 1:38 PM EDT Rebecca Mckinney MD LAB BLOOD ORDERABLES Final Resul t [facility] [address] [place] [address] [phone] * Vitamin B12 (Cobalamin) and Folate Panel, Serum (03/02/2025 8:56 AM EDT) Vitamin B12 507 200 - 900 pg/mL [facility] Comment:NORMAL 200-900 PG/M L INDETERMINATE 160-199 PG/ML DEFICIENT < 160 PG/ML Folate 9.0 > or = 4.0 ng/mL [facility] Comment:Reference Values:> o r = 4.0 ng/mL< 4.0 ng/mL suggests folate deficiency Methotrexate, aminopterin and folinic acid(leucovorin) are chemotherapeutic agents whose molecularstructures are similar to folate; therefore, the Architectfolate assay cannot be used for patients using these drugs. Blood 03/02/2025 8:56 AM EDT 03/02/2025 11:21 AM EDT Rebecca Mckinney MD LAB BLOOD ORDERABLES Final Resul t Performing Organization Address [facility] Co de Phone Number [facility] [address] [place] [phone] * TSH with Reflex to Free T4 (03/02/2025 8:56 AM EDT) TSH reflex Free T4 2.01 0.32 - 4.0 uIU/mL [facility] Blood 03/02/2025 8:56 AM EDT 03/02/2025 11:21 AM EDT Rebecca Mckinney MD LAB BLOOD ORDERABLES Final Resul t Performing Organization Address [facility] Co de Phone Number [facility] [address] [place] [phone] * (ABNORMAL) Lipid Panel with Reflex to Direct LDL (03/02/2025 8:56 AM EDT) Triglycerides 449(H) <150 mg/dL [facility] Comment:Slight Lipemia.Dudley able Triglyceride: less than 150 mg/dLBorderline High Triglyceride 150-199 mg/dLHigh Triglyceride: 200-499 mg/dLVery High Triglyceride: greater than or equal to 5OO mg/dL Cholesterol 153 <200 mg/dL [facility] Comment:Desirable Cholestero l: less than 200 mg/dLBorderline High Cholesterol: 200-239 mg/dLHigh Cholesterol: greater than 239 mg/dL LDL Cholesterol Calculated TNP <100 mg/dL [facility] Comment:Unable to calculate the LDL. The formula of Friedwald,Hamilton, and Moncho is only valid if the triglycerides areless than 400 mg/dl. HDL Cholesterol 28(L) >40 mg/dL [facility] Comment:Desirable HDL: great er than 40 mg/dL Note: This HDL assay may give artificially low results in patients with liver disease. Blood 03/02/2025 8:56 AM EDT 03/02/2025 11:21 AM EDT us Rebecca Mckinney MD LAB BLOOD ORDERABLES Final Resul t Performing Organization Address City/[facility]/ZIP Co de Phone Number [facility] [address] [place] [address] [phone] * (ABNORMAL) Comprehensive Metabolic Panel (03/02/2025 8:56 AM EDT) Sodium 141 135 - 145 mmol/L [facility] Potassium 4.2 3.3 - 5.1 mmol/L [facility] Chloride 107 96 - 108 mmol/L [facility] Carbon Dioxide 29 22 - 29 mmol/L [facility] Anion Gap 9(L) 12 - 20 [facility] Urea Nitrogen (BUN) 21(H) 9 - 16 mg/dL [facility] Creatinine, Serum 1.11 0.5 - 1.4 mg/dL [facility] Estimated Glomerular Filt Rate >60 [facility] Comment:Chronic Kidney Disea se: Estimated GFR < 60 mL/min/[id number] Kidney Disease: Estimated GFR < 15 mL/min/1.73m2 Glucose 200(H) 60 - 115 mg/dL [facility] Calcium 9.5 8.4 - 10.2 mg/dL [facility] Bilirubin, Total 0.2 0.0 - 1.0 mg/dL [facility] Aspartate Amino Transferase 41(H) 5 - 37 U/L [facility] Alanine Aminotransferase 26 0 - 40 U/L [facility] Total Protein 6.9 6.5 - 8.0 g/dL [facility] Albumin Level 4.4 3.5 - 5.0 g/dL [facility] Alkaline Phosphatase 79 39 - 117 U/L [facility] Blood Venous blood specimen / Unknown 03/02/2025 8:56 AM EDT 03/02/2025 11:21 AM EDT us Rebecca Mckinney MD LAB BLOOD ORDERABLES Final Resul t [facility] [address] [place] [phone] * (ABNORMAL) POCT glycosylated hemoglobin (Hgb A1c) (02/08/2025 9:40 AM EDT) Hemoglobin A1C 11.7(A) 4.0 - 5.7 % QC Media Lot # [id number] Lot# Expiration Date [id number] Blood Capillary blood specimen / Unknown 02/08/2025 9:40 AM EDT Rebecca Mckinney MD POINT OF CARE TEST ENTER/EDIT OR DERABLES Final Result * (ABNORMAL) POCT glucose manually resulted (02/08/2025 9:28 AM EDT) Glucose Blood, POC 269(A) 60 - 200 mg/dL QC Media Lot # [id number] Lot# Expiration Date 272, Blood Capillary blood specimen / Unknown 02/08/2025 9:28 AM EDT Rebecca Mckinney MD POINT OF CARE TEST ENTER/EDIT OR DERABLES Final Result * ALBUMIN, RANDOM URINE W/CREATININE (08/08/2020 10:45 AM EST) Pathologist [facility] Microalbumin Urine 2.4 See Note: mg/dL [facility] Comment: Reference Range: Reference Range Not established Microalb/Creat Ratio 24 <30 mcg/mg creat [facility] Comment: The ADA defines abnormalities [...] MD LAB URINE ORDERABLES Final Resul t [facility] [address] from Last 3 Months or Most Recently Relevant to Health Maintenance Insurance [employer] PPO Care Teams [employer] Consultant Relationship Specialty Start Date End Date Rebecca Mckinney MD [address] [place] [address] [place] [address] PCP - General Family Medicine 01/02/19
--- OUTSIDE RECORDS SUMMARY | 2025-04-17 16:31 | XMS_ITS | Encounter Summary ---
Author Organization [employer] Address 75 [facility] 7t [place] [address] Care Team Providers Care Lap Runner Name Role Phone Rebecca Mckinney MD Primary Care Provider [phone] Encounter Details Date Type Department Care Team [...] on filedocumented in this encounter Care Teams Lap Runner Relationship Specialty Start Date End Date Rebecca Mckinney MD [address] [place] [address] PCP - General Family Medicine 01/02/19 documented as of this encounter
--- OUTSIDE RECORDS SUMMARY | 2025-04-17 16:31 | XMS_ITS | Encounter Summary ---
Author Organization [employer] Address [address] [facility] [address]t [place] [address] Care Team Providers Care Rubber Covering Machine Operator Name Role Phone Rebecca Mckinney MD Primary Care Provider [phone] Encounter Details Date Type Department Care Team (Latest Contact Info) Description 04/16/2025 Travel Social History Tobacco Use Types Packs/Day Years [...] documented as of this encounter Care Teams Rubber Covering Machine Operator Relationship Specialty Start Date End Date Rebecca Mckinney MD [address] [place] [phone] PCP - General Family Medicine 01/02/19 documented as of this encounter
--- OUTSIDE RECORDS SUMMARY | 2025-04-17 16:31 | XMS_ITS | Encounter Summary ---
Author Organization [employer] Address [address] [facility] [address] [place] [address] Care Team Providers Care Commercial Food Instructor Name Role Phone Rebecca Mckinney MD Primary Care Provider [phone] Reason for Visit * Reason Onset Date Comments Med Refill 03/07/2024 Encounter Details Date Type Department Care Team (Late st Contact Info) Description 03/07/2024 Refill [facility] [address] [place] [address] Rebecca Mckinney MD [address] [place] [address] Type 2 diabetes mellitus with hyperglycemia, unspecified whether ferry terminal agent insulin use ([facility]) Social History Tobacco Use Types [...] 2 diabetes mellitus with hyperglycemia, unspecified whether fpc insulin use (HCC) documented in this encounter Additional Health Concerns Assessment Noted Time PHQ-9 Depression Total Score: 11 024 9:16 AM EDT documented as of this encounter Care Teams Commercial Food Instructor Relationship Specialty Start Date End Date Rebecca Mckinney MD [address] [place] [id number] PCP - General Family Medicine 01/02/19 documented as of this encounter
--- OUTSIDE RECORDS SUMMARY | 2025-04-17 16:31 | XMS_ITS | Encounter Summary ---
Author Organization [employer] Address [address] [facility] [address] [place] [address] Care Team Providers Care Disabilities Services Officer Name Role Phone Rebecca Mckinney MD Primary Care Provider [phone] Reason for Referral * Consultation (Routine) - Closed Specialty Diagnoses / Procedures Referred By Contac t Referred To Contact Pharmacy Diagnoses Type 2 diabetes mellitus with hyperglycemia, with long-term current use of insulin (HCC) Essential hypertension Rebecca Mckinney MD [address] [place] [address] Phone: tel: fax: Referral ID Status Reason Start Date Expiration Date V isits Requested Visits Authorized [id number] Closed Consult and Treat 04/05/2024 04/05/2025 6 6 Encounter Details Date Type Department Care Team (Late st Contact Info) Description 04/05/2024 Orders Only [facility] [address] [place], [place] [phone] Rebecca Mckinney MD [address] [place], [place] [phone] Type 2 diabetes mellitus with hyperglycemia, with [...] Diagnoses Orde r Schedule Referral to Pharmacy CDTM Outpatient Referral Routine Type 2 diabetes mellitus with hyperglycemia, with long-term current use of insulin ([facility]) Essential hypertension Ordered: 04/05/2024 documented as of this encounter Procedures Procedure Name Priority Date/Time Associated Diagnosis Comments DIRECT LDL Routine 03/02/2025 1:38 PM EDT Type 2 diabetes mellitus with hyperglycemia, with long-term current use of insulin ([facility]) documented in this encounter Results * Direct LDL (03/02/2025 1:38 PM EDT) LDL Direct 70 <100 mg/dL [facility] Comment:Greatly elevated Tri glycerides values (>1200 mg/dL)interfere with the dLDL assay.Desirable range <100 mg/dL for primary prevention;<70 mg/dL for patients with CHD or diabetic patientswith > or = 2 CHD risk factors.THIS TEST WAS PERFORMED AT:[facility] [place] [id number] ANG MD 03/02/2025 1:38 PM EDT 03/02/2025 1:38 PM EDT us Rebecca Mckinney MD LAB BLOOD ORDERABLES Final Resul t [facility] [address] [place] [phone] documented in this encounter Visit Diagnoses Diagnosis Type 2 diabetes mellitus with hyperglycemia, with long-term current use of insulin (HCC)- Primary Essential hypertension Unspecified essential hypertension documented in this encounter Additional Health Concerns Assessment Noted Time PHQ-9 Depression Total Score: 11 02/21/ 024 9:16 AM EDT documented as of this encounter Care Teams Disabilities Services Officer Relationship Specialty Start Date End Date Rebecca Mckinney MD [address] [place] [address] PCP - General Family Medicine 01/02/19 documented as of this encounter
== END 2025-04-17 14:45 | disposition home or self-care (01) ==
LOC: HO.HHCX 14:44
PROVIDERS: PCP Family Medicine; Visit Provider Nurse Practitioner Family
DX: Z13.89 Encounter for screening for other disorder (principal)

== ENCOUNTER 2025-04-17 15:20 | Outpatient (REF) | payer OTHER, SELFPAY ==
--- NOTE | ~2025-04-17 | XR_ITS ---
EXAMINATION: XR SHOULDER, LEFT CLINICAL INFORMATION: CHRONIC LT SHOULDER PAIN COMPARISON: None available. TECHNIQUE: 5 views of the left shoulder. FINDINGS: No acute fracture, dislocation or suspicious bony lesion. Mild acromioclavicular arthritis. Glenohumeral joint is maintained. No abnormal soft tissue calcification. XR/XR shoulder LT min 2V IMPRESSION: Mild acromioclavicular arthritis Electronically signed by: Adair Lima MD 04/18/2025 03:02 PM DIANA
== END 2025-04-17 15:21 | disposition home or self-care (01) ==
LOC: HO.XRAY 15:20
PROVIDERS: PCP Family Medicine; Visit Provider Nurse Practitioner Family
DX: M25.512 Pain in left shoulder (principal); G89.29 Other chronic pain
CPT/HCPCS: 73030

== ENCOUNTER → 2025-04-17 15:25 | Outpatient (BNV) | payer OTHER, SELFPAY | PROVIDERS: PCP Family Medicine; Visit Provider Radiology Diagnostic Ultrasound | DX: M19.012 Primary osteoarthritis, left shoulder (principal) | CPT/HCPCS: 73030 ==